=== PATIENT | female | born 1960 | race Caucasian/White ===

== ENCOUNTER 2024-03-03 10:42 | Inpatient (IN) | payer MEDICARE ==
[~2024-03-03] VITALS: Ht 152.4 cm; Wt 57.9 kg
[~2024-03-03 10:42] MED LIST: BACL10TA PO; Bisacodyl PR; CEFD300C18 PO; CLON-598 PO; HYDR-4062 PO; HYDR-4527 PO; LIDO100S39 PO; LIDO35.422 TP; METF-1211 PO; PANT-31 PO; PILO1OS OU; PRAZ5 PO; PRED-549 PO; PRED-729 PO; PREG50 PO; PRIM50TA3 PO; QUET25TA PO; SENN-376 PO; THYR30TA24 PO
[2024-03-03] MEDS ORDERED: 0.9% SODIUM CHLORIDE 10 ML SYRINGE IVP PRN (12:00)
[2024-03-03] MEDS: SODIUM CHLORIDE 0.9% 1,750 ML IV ONE (12:23)
[2024-03-03] MEDS: LORazepam 2 MG/ML VIAL IVP ONE (12:23)
[2024-03-03] MEDS: CefTRIAXone 1 GM/DEXTROSE 50 ML IV ONE (12:28)
[2024-03-03 12:46] LABS: BASOPHILS % (AUTO) 0.7 % (0.0-2.0); EOSINOPHILS % (AUTO) 1.2 % (1.0-6.0); HEMATOCRIT 45.8 % (36-46); LYMPHOCYTES # (AUTO) 2.1 K/uL (1.0-4.8); LYMPHOCYTES % (AUTO) 25.6 % (22.0-44.0); MEAN CORPUSCULAR HEMOGLOBIN 31.3 pg (26.0-34.0); MEAN CORPUSCULAR HGB CONC 32.6 G/dL (31.0-37.0); MEAN CORPUSCULAR VOLUME 96 fL (80-100); MONOCYTES # (AUTO) 0.6 K/uL (0.1-1.0); MONOCYTES % (AUTO) 7.3 % (2.0-9.0); NEUTROPHILS # (AUTO) 5.4 K/uL (1.8-7.7); NEUTROPHILS % (AUTO) 65.2 % (40.0-70.0); PLATELET COUNT (AUTO) 269 K/uL (150-450); RED BLOOD CELL COUNT(AUTO) 4.77 MIL/uL (4.00-5.20); RED CELL DISTRIBUTION WIDTH 16.4 % (11.5-14.5); WHITE BLOOD COUNT (AUTO) 8.2 K/uL (4.5-11.0)
[2024-03-03 12:59] LABS: PROTHROMBIN TIME 10.1 SEC (9.4-11.6)
[2024-03-03 13:00] LABS: ANION GAP 6 mmol/L (8-16); CALCIUM, TOTAL 9.6 mg/dL (8.8-10.5); CARBON DIOXIDE 29 mmol/L (22-29); CHLORIDE 108 mmol/L (98-107); CREATININE 0.45 mg/dL (0.60-1.30); GLOMERULAR FILTR. RATE CALC > 60 mL/min (>60); GLUCOSE,RANDOM 103 mg/dL (70-110); POTASSIUM 4.3 mmol/L (3.5-5.1); SODIUM SERUM 143 mmol/L (136-145); UREA NITROGEN, BLOOD 9 mg/dL (7-18)
[2024-03-03 13:06] LABS: AMMONIA 27 umol/L (11-32)
[2024-03-03 13:09] LABS: B-TYPE NATRIURETIC PEPTIDE 8 pg/mL (0-100)
[2024-03-03 13:12] LABS: ALANINE AMINOTRANSFERASE 54 U/L (12-78); ALBUMIN 3.5 g/dL (3.4-5.0); ALKALINE PHOSPHATASE 106 U/L (46-116); ASPARTATE AMINOTRANSFERASE 22 U/L (15-37); BILIRUBIN,TOTAL 0.2 mg/dL (0.1-1.0); TOTAL PROTEIN, SERUM 7.2 g/dL (6.4-8.2)
[2024-03-03 13:18] LABS: APPEARANCE,URINE CLEAR (CLEAR); BILIRUBIN,URINE NEGATIVE (NEGATIVE); COLOR,URINE COLORLESS (YELLOW); GLUCOSE, URINE (UA) NEGATIVE (NEGATIVE); KETONES,URINE NEGATIVE (NEGATIVE); LEUKOCYTE ESTERASE ,URINE LARGE (NEGATIVE); NITRATE,URINE NEGATIVE (NEGATIVE); OCCULT BLOOD,URINE NEGATIVE (NEGATIVE); PH,URINE 7.5 (5.0-8.0); PH,URINE DRUG SCREEN 7.5 (5.0-8.0); PROTEIN,URINE NEGATIVE (NEGATIVE); SPECIFIC GRAVITIY, URINE 1.006 (1.003-1.030); UROBILINOGEN,URINE <=1.0 mg/dL (<=1.0)
[2024-03-03 13:24] LABS: AMPHET/METH SCREEN,URINE NEGATIVE (NEGATIVE); BARBITURATE SCREEN, URINE POSITIVE (NEGATIVE); BENZODIAZEPINES SCREEN,URINE POSITIVE (NEGATIVE); CANNABINOID SCREEN,URINE NEGATIVE (NEGATIVE); COCAINE SCREEN,URINE NEGATIVE (NEGATIVE); METHADONE SCREEN, URINE NEGATIVE (NEGATIVE); OPIATE SCREEN,URINE NEGATIVE (NEGATIVE); PHENCYCLIDINE SCREEN,URINE NEGATIVE (NEGATIVE)
[2024-03-03 13:24] LABS: TROPONIN I-HIGH SENSITIVITY Less Than 4 ng/L (<51)
[2024-03-03 13:26] LABS: ALCOHOL, URINE DRUG SCREEN NEGATIVE (NEGATIVE)
[2024-03-03 13:31] LABS: LACTIC ACID 2.3 mmol/L (0.4-2.0)
[2024-03-03 13:43] LABS: BACTERIA,URINE Few /HPF (None Seen); RBC,URINE None Seen /HPF (0-2)
[2024-03-03] MEDS: HYDROCORTISONE SOD SUCC 100 MG/2 ML VIAL IVP ONE (14:15)
[2024-03-03] MEDS ORDERED: BISACODYL 10 MG RECTAL RECTAL SUPPOSITORY PR PRN (14:30)
[2024-03-03] MEDS ORDERED: HydrOXYzine HCL 25 MG TABLET PO PRN (14:30)
[2024-03-03] MEDS ORDERED: ACETAMINOPHEN 325 MG TABLET PO PRN (14:30)
[2024-03-03] MEDS ORDERED: MAGNESIUM HYDROXIDE SUSPENSION 30 ML UDCUP PO PRN (14:30)
[2024-03-03] MEDS ORDERED: ONDANSETRON HCL 4 MG/2 ML VIAL IVP PRN (14:30)
[2024-03-03] MEDS: HEPARIN SODIUM,PORCINE 5,000 UNITS/ML VIAL SQ SCH (15:16)
[2024-03-03] MEDS: MORPHINE SULFATE 2 MG/ML SYRINGE IVP PRN (15:19)
[2024-03-03] MEDS: BACLOFEN 10 MG TABLET PO SCH (15:19)
[2024-03-03 18:30] VITALS: BP 149/74; PULSE 58; RESP 16; TEMP 97.8; O2SAT 98
[2024-03-03 20:00] VITALS: BP 113/67; PULSE 69; RESP 20; TEMP 98.1; O2SAT 94
[2024-03-03] MEDS: DOCUSATE SODIUM 100 MG CAPSULE PO SCH (21:00)
[2024-03-03] MEDS: ZOLPIDEM TARTRATE 5 MG TABLET PO PRN (21:20)
[2024-03-03] MEDS: ClonazePAM 1 MG TABLET PO SCH (21:21)
[2024-03-03] MEDS: PRAZOSIN HCL 5 MG CAPSULE PO SCH (21:21)
[2024-03-03] MEDS: APIXABAN 5 MG TABLET PO SCH (21:21)
[2024-03-04] MEDS: PANTOPRAZOLE SODIUM 40 MG DR TABLET PO SCH (08:39)
[2024-03-04] MEDS: PredniSONE 5 MG TABLET PO SCH (08:40)
[2024-03-04] MEDS: CefTRIAXone 1 GM/DEXTROSE 50 ML IV SCH (12:01)
[2024-03-04] MEDS: MetFORMIN HCL 500 MG TABLET PO SCH (12:01)
[2024-03-04] MEDS: HYDROCODONE/ACETAMINOPHEN 5-325 MG TABLET PO PRN (16:46)
[2024-03-05 04:51] VITALS: BP 100/58; PULSE 63; RESP 18; TEMP 97.8; O2SAT 95
[2024-03-05 08:27] VITALS: BP 106/62; PULSE 72; RESP 16; TEMP 98; O2SAT 96
[2024-03-05] MEDS ORDERED: THYR30TA24 PO (10:55)
[2024-03-05] MEDS ORDERED: HYDR-4062 PO (10:55)
[2024-03-05] MEDS ORDERED: METF-1211 PO (10:55)
[2024-03-05] MEDS ORDERED: PRED-729 PO (10:55)
[2024-03-05] MEDS ORDERED: PRAZ5 PO (10:55)
[2024-03-05] MEDS ORDERED: PREG50 PO (10:55)
[2024-03-05] MEDS ORDERED: APIX5TAB PO (10:55)
[2024-03-05] MEDS ORDERED: BACL10TA PO (10:55)
[2024-03-05] MEDS ORDERED: LEVO-72 PO (10:55)
[2024-03-05] MEDS ORDERED: PILO1OS OU (10:55)
[2024-03-05] MEDS ORDERED: PANT-31 PO (10:55)
== END 2024-03-05 15:15 | disposition home health service (06) | DRG 92 ==
LOC: EMS 10:42 → EDH 14:16 → 6S 19:31
PROVIDERS: ADMIT Internal Medicine; ATTEND Internal Medicine
DX: G92.8 Other toxic encephalopathy (principal); N39.0 Urinary tract infection, site not specified; E11.9 Type 2 diabetes mellitus without complications; I10 Essential (primary) hypertension; K21.9 Gastro-esophageal reflux disease without esophagitis; E03.9 Hypothyroidism, unspecified; E78.5 Hyperlipidemia, unspecified; B96.1 Klebsiella pneumoniae [K. pneumoniae] as the cause of diseases classified elsewhere; F25.9 Schizoaffective disorder, unspecified; G89.29 Other chronic pain; Z79.84 Long term (current) use of oral hypoglycemic drugs; Z86.718 Personal history of other venous thrombosis and embolism; Z88.8 Allergy status to other drugs, medicaments and biological substances
CPT/HCPCS: 51702; 70450; 71045; 80053; 80307; 81001; 82140; 83605; 83880; 84145; 84484; 85025; 85610; 87040; 87077; 87086; 87186; 93005; 93970; 97163; 97530; 99291; G0480; J0696; J1644; J1720; J2060; J2270; J7030; 36415-L1; 36415-TC; J7512; Z7610

== ENCOUNTER 2024-04-07 08:31 | Inpatient (IN) | payer MEDICARE ==
[~2024-04-07] VITALS: Ht 160 cm; Wt 62.1 kg
[~2024-04-07 08:31] MED LIST changes: +APIX5TAB PO; -CEFD300C18 PO; +LEVO-72 PO; -LIDO35.422 TP; -PRED-549 PO
[2024-04-07] MEDS ORDERED: ACETAMINOPHEN 650 MG RECTAL SUPPOSITORY PR ONE (09:00)
[2024-04-07] MEDS: ACETAMINOPHEN 1000 MG/ISO-OSM 100 ML IV ONE (09:03)
[2024-04-07 09:08] LABS: BASOPHILS % (AUTO) 0.5 % (0.0-2.0); EOSINOPHILS % (AUTO) 0.1 % (1.0-6.0); HEMATOCRIT 41.7 % (36-46); HEMOGLOBIN 13.8 g/dL (12.0-16.0); LYMPHOCYTES # (AUTO) 0.6 K/uL (1.0-4.8); LYMPHOCYTES % (AUTO) 9.5 % (22.0-44.0); MEAN CORPUSCULAR HEMOGLOBIN 31.6 pg (26.0-34.0); MEAN CORPUSCULAR HGB CONC 33.2 G/dL (31.0-37.0); MEAN CORPUSCULAR VOLUME 95 fL (80-100); MONOCYTES # (AUTO) 0.4 K/uL (0.1-1.0); MONOCYTES % (AUTO) 6.4 % (2.0-9.0); NEUTROPHILS # (AUTO) 5.4 K/uL (1.8-7.7); NEUTROPHILS % (AUTO) 83.5 % (40.0-70.0); PLATELET COUNT (AUTO) 175 K/uL (150-450); RED BLOOD CELL COUNT(AUTO) 4.38 MIL/uL (4.00-5.20); RED CELL DISTRIBUTION WIDTH 16.4 % (11.5-14.5); WHITE BLOOD COUNT (AUTO) 6.4 K/uL (4.5-11.0)
[2024-04-07] MEDS: VANCOMYCIN 1.5 GM/WATER(PEG) 300 ML IV ONE (09:15)
[2024-04-07] MEDS: SODIUM CHLORIDE 0.9% 500 ML IV ONE (09:16)
[2024-04-07] MEDS: CEFEPIME HCL 2 GM in DEXTROSE 5%-WATER 50 ML IV ONE (09:16)
[2024-04-07 09:18] LABS: COVID AG,FIA SOURCE NASAL SWAB
[2024-04-07 09:22] LABS: APPEARANCE,URINE CLEAR (CLEAR); BILIRUBIN,URINE NEGATIVE (NEGATIVE); COLOR,URINE YELLOW (YELLOW); GLUCOSE, URINE (UA) NEGATIVE (NEGATIVE); KETONES,URINE NEGATIVE (NEGATIVE); LEUKOCYTE ESTERASE ,URINE NEGATIVE (NEGATIVE); NITRATE,URINE NEGATIVE (NEGATIVE); OCCULT BLOOD,URINE NEGATIVE (NEGATIVE); PH,URINE 5.5 (5.0-8.0); PROTEIN,URINE 30-70 mg/dL (NEGATIVE); SPECIFIC GRAVITIY, URINE 1.019 (1.003-1.030); UROBILINOGEN,URINE <=1.0 mg/dL (<=1.0)
[2024-04-07 09:23] LABS: ANION GAP 9 mmol/L (8-16); CALCIUM, TOTAL 8.5 mg/dL (8.8-10.5); CARBON DIOXIDE 26 mmol/L (22-29); CHLORIDE 98 mmol/L (98-107); CREATININE 0.79 mg/dL (0.60-1.30); GLOMERULAR FILTR. RATE CALC > 60 mL/min (>60); GLUCOSE,RANDOM 129 mg/dL (70-110); POTASSIUM 3.7 mmol/L (3.5-5.1); SODIUM SERUM 133 mmol/L (136-145); UREA NITROGEN, BLOOD 16 mg/dL (7-18)
[2024-04-07 09:31] LABS: TROPONIN I-HIGH SENSITIVITY 6 ng/L (<51)
[2024-04-07 09:37] LABS: THYROID STIMULATING HORMONE 0.77 uIU/mL (0.36-3.74)
[2024-04-07 09:40] LABS: INFLUENZA TYPE A NEGATIVE FOR TYPE A (NEGATIVE); INFLUENZA TYPE B NEGATIVE FOR TYPE B (NEGATIVE); SARS-COV2 (COVID) ANTIGEN,FIA Negative (Negative)
[2024-04-07 09:48] LABS: LACTIC ACID 1.2 mmol/L (0.4-2.0)
[2024-04-07] MEDS ORDERED: CLON1TAB12 PO (12:06)
[2024-04-07] MEDS ORDERED: THYR30TA2 PO (12:06)
[2024-04-07] MEDS ORDERED: CLON2TAB11 PO (12:06)
[2024-04-07] MEDS ORDERED: PRED5TAB2 PO (12:06)
[2024-04-07] MEDS ORDERED: DIAZ5TAB4 PO (12:06)
[2024-04-07] MEDS ORDERED: BACL20TA PO (12:06)
[2024-04-07] MEDS ORDERED: ALEN70TA80 PO (12:06)
[2024-04-07] MEDS ORDERED: LEVO25TA9 PO (12:06)
[2024-04-07] MEDS ORDERED: ZOLPIDEM TARTRATE 5 MG TABLET PO PRN (14:15)
[2024-04-07] MEDS ORDERED: BISACODYL 10 MG RECTAL RECTAL SUPPOSITORY PR PRN (14:15)
[2024-04-07] MEDS ORDERED: MAGNESIUM HYDROXIDE SUSPENSION 30 ML UDCUP PO PRN (14:15)
[2024-04-07] MEDS ORDERED: ONDANSETRON HCL 4 MG/2 ML VIAL IVP PRN (14:15)
[2024-04-07 14:35] LABS: ALANINE AMINOTRANSFERASE 125 U/L (12-78); ALBUMIN 3.2 g/dL (3.4-5.0); ALKALINE PHOSPHATASE 129 U/L (46-116); ASPARTATE AMINOTRANSFERASE 99 U/L (15-37); BILIRUBIN,TOTAL 0.2 mg/dL (0.1-1.0); TOTAL PROTEIN, SERUM 6.4 g/dL (6.4-8.2)
[2024-04-07] MEDS: *CLINICAL-LEVOFLOXACIN IVPB DOSING CLINICAL ONE (14:38)
[2024-04-07] MEDS: ACETAMINOPHEN 325 MG TABLET PO PRN (14:44)
[2024-04-07] MEDS: SODIUM CHLORIDE 0.9% 1,000 ML IV ONE (14:44)
[2024-04-07] MEDS ORDERED: BISA10SU11 PR (14:45)
[2024-04-07] MEDS: LEVOFLOXACIN 750 MG/D5% WATER 150 ML IV SCH (14:46)
[2024-04-07] MEDS ORDERED: TRAZ-252 PO (14:48)
[2024-04-07] MEDS ORDERED: HEPARIN SODIUM,PORCINE 5,000 UNITS/ML VIAL SQ SCH (16:00)
[2024-04-07 16:33] VITALS: BP 134/84; PULSE 67; RESP 17; TEMP 98.4; O2SAT 100
[2024-04-07 17:05] VITALS: BP 101/51; PULSE 121; RESP 17; TEMP 100.1; O2SAT 97
[2024-04-07] MEDS: CefTRIAXone 1 GM/DEXTROSE 50 ML IV SCH (17:23)
[2024-04-07 20:36] VITALS: BP 104/52; PULSE 110; RESP 19; TEMP 99.3; O2SAT 96
[2024-04-07] MEDS: DOCUSATE SODIUM 100 MG CAPSULE PO SCH (21:00)
[2024-04-07] MEDS: APIXABAN 5 MG TABLET PO SCH (21:44)
[2024-04-07 22:54] LABS: PH,URINE DRUG SCREEN 5.5 (5.0-8.0)
[2024-04-07 23:01] LABS: ALCOHOL, URINE DRUG SCREEN NEGATIVE (NEGATIVE); AMPHET/METH SCREEN,URINE NEGATIVE (NEGATIVE); BARBITURATE SCREEN, URINE NEGATIVE (NEGATIVE); BENZODIAZEPINES SCREEN,URINE NEGATIVE (NEGATIVE); CANNABINOID SCREEN,URINE NEGATIVE (NEGATIVE); COCAINE SCREEN,URINE NEGATIVE (NEGATIVE); METHADONE SCREEN, URINE NEGATIVE (NEGATIVE); OPIATE SCREEN,URINE POSITIVE (NEGATIVE); PHENCYCLIDINE SCREEN,URINE NEGATIVE (NEGATIVE)
[2024-04-08] VITALS (7 sets, daily range): BP systolic 104–148; BP diastolic 57–72; PULSE 81–112; RESP 17–19; TEMP 97.5–98.7; O2SAT 97–100
[2024-04-08 00:52] LABS: INFLUENZA A-RTPCR,COMBO POSITIVE (NEGATIVE); INFLUENZA B-RTPCR,COMBO NEGATIVE (NEGATIVE); RESPIRATORY SYNCYTIAL VRS-PCR NEGATIVE (NEGATIVE); SARS COVID19 RTPCR, COMBO NEGATIVE (NEGATIVE)
[2024-04-08] MEDS: LEVOTHYROXINE SODIUM 25 MCG TABLET PO SCH (05:30)
[2024-04-08] MEDS: THYROID 30 MG TABLET PO SCH (05:30)
[2024-04-08 06:45] LABS: BASOPHILS % (AUTO) 0.4 % (0.0-2.0); EOSINOPHILS % (AUTO) 0.2 % (1.0-6.0); HEMATOCRIT 42.1 % (36-46); HEMOGLOBIN 13.4 g/dL (12.0-16.0); LYMPHOCYTES # (AUTO) 0.8 K/uL (1.0-4.8); LYMPHOCYTES % (AUTO) 13.6 % (22.0-44.0); MEAN CORPUSCULAR HEMOGLOBIN 31.6 pg (26.0-34.0); MEAN CORPUSCULAR HGB CONC 31.9 G/dL (31.0-37.0); MEAN CORPUSCULAR VOLUME 99 fL (80-100); MONOCYTES # (AUTO) 0.4 K/uL (0.1-1.0); MONOCYTES % (AUTO) 7.4 % (2.0-9.0); NEUTROPHILS # (AUTO) 4.4 K/uL (1.8-7.7); NEUTROPHILS % (AUTO) 78.4 % (40.0-70.0); PLATELET COUNT (AUTO) 117 K/uL (150-450); RED BLOOD CELL COUNT(AUTO) 4.25 MIL/uL (4.00-5.20); RED CELL DISTRIBUTION WIDTH 16.9 % (11.5-14.5); WHITE BLOOD COUNT (AUTO) 5.6 K/uL (4.5-11.0)
[2024-04-08 06:56] LABS: ALANINE AMINOTRANSFERASE 97 U/L (12-78); ALBUMIN 2.7 g/dL (3.4-5.0); ALKALINE PHOSPHATASE 117 U/L (46-116); ANION GAP 13 mmol/L (8-16); ASPARTATE AMINOTRANSFERASE 74 U/L (15-37); BILIRUBIN,TOTAL 0.2 mg/dL (0.1-1.0); CALCIUM, TOTAL 7.9 mg/dL (8.8-10.5); CARBON DIOXIDE 23 mmol/L (22-29); CHLORIDE 105 mmol/L (98-107); CREATININE 0.41 mg/dL (0.60-1.30); GLOMERULAR FILTR. RATE CALC > 60 mL/min (>60); GLUCOSE,RANDOM 104 mg/dL (70-110); POTASSIUM 3.5 mmol/L (3.5-5.1); SODIUM SERUM 140 mmol/L (136-145); TOTAL PROTEIN, SERUM 5.8 g/dL (6.4-8.2); UREA NITROGEN, BLOOD 8 mg/dL (7-18)
[2024-04-08] MEDS: PANTOPRAZOLE SODIUM 40 MG DR TABLET PO SCH (08:44)
[2024-04-08] MEDS: OSELTAMIVIR PHOSPHATE 75 MG CAPSULE PO SCH (12:52)
[2024-04-08] MEDS: MethylPREDNISolone SOD SUCC 40 MG/ML VIAL IVP SCH (15:05)
[2024-04-08] MEDS: MORPHINE SULFATE 2 MG/ML SYRINGE IVP PRN (22:08)
[2024-04-08] MEDS: HYDROCODONE/ACETAMINOPHEN 5-325 MG TABLET PO PRN (23:59)
[2024-04-09 05:34] VITALS: BP 123/66; PULSE 76; RESP 18; TEMP 97.9; O2SAT 99
[2024-04-09] MEDS: HydrOXYzine HCL 25 MG TABLET PO PRN ×2 (06:12→13:20)
[2024-04-09 09:39] VITALS: BP 129/67; PULSE 84; RESP 18; TEMP 98; O2SAT 98
[2024-04-09 11:23] LABS: BASOPHILS % (AUTO) 0.4 % (0.0-2.0); EOSINOPHILS % (AUTO) 0 % (1.0-6.0); HEMATOCRIT 40.5 % (36-46); HEMOGLOBIN 13.6 g/dL (12.0-16.0); LYMPHOCYTES # (AUTO) 0.6 K/uL (1.0-4.8); LYMPHOCYTES % (AUTO) 20.3 % (22.0-44.0); MEAN CORPUSCULAR HEMOGLOBIN 31.5 pg (26.0-34.0); MEAN CORPUSCULAR HGB CONC 33.5 G/dL (31.0-37.0); MEAN CORPUSCULAR VOLUME 94 fL (80-100); MONOCYTES # (AUTO) 0.1 K/uL (0.1-1.0); MONOCYTES % (AUTO) 3.5 % (2.0-9.0); NEUTROPHILS # (AUTO) 2.4 K/uL (1.8-7.7); NEUTROPHILS % (AUTO) 75.8 % (40.0-70.0); PLATELET COUNT (AUTO) 150 K/uL (150-450); RED BLOOD CELL COUNT(AUTO) 4.31 MIL/uL (4.00-5.20); RED CELL DISTRIBUTION WIDTH 15.9 % (11.5-14.5); WHITE BLOOD COUNT (AUTO) 3.1 K/uL (4.5-11.0)
[2024-04-09 11:35] VITALS: BP 124/69; PULSE 78; RESP 18; TEMP 97.8; O2SAT 99
[2024-04-09 11:37] LABS: ANION GAP 15 mmol/L (8-16); CALCIUM, TOTAL 8.2 mg/dL (8.8-10.5); CARBON DIOXIDE 21 mmol/L (22-29); CHLORIDE 105 mmol/L (98-107); CREATININE 0.43 mg/dL (0.60-1.30); GLOMERULAR FILTR. RATE CALC > 60 mL/min (>60); GLUCOSE,RANDOM 104 mg/dL (70-110); POTASSIUM 3.7 mmol/L (3.5-5.1); SODIUM SERUM 141 mmol/L (136-145); UREA NITROGEN, BLOOD 6 mg/dL (7-18)
[2024-04-09] MEDS ORDERED: INSULIN LISPRO 100 UNITS/ML SQ PRN (12:00)
[2024-04-09] MEDS ORDERED: SENNOSIDES 8.6 MG TABLET PO PRN (12:00)
[2024-04-09] MEDS ORDERED: HYDROCODONE/ACETAMINOPHEN 5-325 MG TABLET PO PRN (12:00)
[2024-04-09] MEDS ORDERED: DEXTROSE 50%-WATER 25 GM/50 ML SYRINGE IVP PRN (12:00)
[2024-04-09] MEDS ORDERED: VANCOMYCIN 750 MG/WATER(PEG) 150 ML IV ONE (12:00)
[2024-04-09] MEDS ORDERED: BISACODYL 10 MG RECTAL RECTAL SUPPOSITORY PR PRN (12:00)
[2024-04-09] MEDS ORDERED: SODIUM CHLORIDE 3% 15 ML NEB SOLUTION NEB ONE (12:05)
[2024-04-09] MEDS: VANCOMYCIN HCL 750 MG in DEXTROSE 5%-WATER 250 ML IV ONE (13:10)
[2024-04-09] MEDS: ClonazePAM 1 MG TABLET PO PRN (13:20)
[2024-04-09] MEDS: BACLOFEN 10 MG TABLET PO PRN (13:20)
[2024-04-09 15:08] VITALS: BP 122/64; PULSE 80; RESP 19; TEMP 97.6; O2SAT 98
[2024-04-09] MEDS: PREGABALIN 50 MG CAPSULE PO SCH (16:12)
[2024-04-09] MEDS ORDERED: VANCOMYCIN 750 MG/WATER(PEG) 150 ML IV SCH (20:00)
[2024-04-09] MEDS: VANCOMYCIN HCL 750 MG in DEXTROSE 5%-WATER 250 ML IV SCH (20:17)
[2024-04-09] MEDS: PredniSONE 10 MG TABLET PO SCH (20:17)
[2024-04-09] MEDS: PRAZOSIN HCL 5 MG CAPSULE PO SCH (20:25)
[2024-04-09] MEDS: PRIMIDONE 50 MG TABLET PO SCH (20:26)
[2024-04-09] MEDS: TraZODone HCL 50 MG TABLET PO SCH (20:26)
[2024-04-09] MEDS: PANTOPRAZOLE SODIUM 40 MG DR TABLET PO SCH (20:27)
[2024-04-09] MEDS: QUEtiapine FUMARATE 25 MG TABLET PO SCH (20:28)
[2024-04-09] MEDS: PILOCARPINE HCL 1% 15 ML OPHTHALMIC SOLUTION OU SCH (20:29)
[2024-04-09 20:30] VITALS: BP 106/73; PULSE 69; RESP 19; TEMP 97.8; O2SAT 99
[2024-04-09 23:05] LABS: GLUCOMETER DEV NAME(LOC) 5N.1D; GLUCOSE,POINT OF CARE 145 MG/DL (70-110)
[2024-04-10 00:45] VITALS: BP 112/69; PULSE 70; RESP 18; TEMP 98.1; O2SAT 98
[2024-04-10 04:45] VITALS: BP 100/65; PULSE 85; RESP 19; TEMP 97.7; O2SAT 98
[2024-04-10] MEDS ORDERED: ALENDRONATE SODIUM 70 MG TABLET PO SCH (06:30)
[2024-04-10 07:40] VITALS: BP 106/73; PULSE 82; RESP 16; TEMP 98.1; O2SAT 97
[2024-04-10 08:45] LABS: GLUCOMETER DEV NAME(LOC) 5N.1D; GLUCOSE,POINT OF CARE 169 MG/DL (70-110)
[2024-04-10 08:47] LABS: BASOPHILS % (AUTO) 0.6 % (0.0-2.0); EOSINOPHILS % (AUTO) 0.4 % (1.0-6.0); HEMATOCRIT 37.9 % (36-46); HEMOGLOBIN 12.9 g/dL (12.0-16.0); LYMPHOCYTES # (AUTO) 0.9 K/uL (1.0-4.8); LYMPHOCYTES % (AUTO) 39.6 % (22.0-44.0); MEAN CORPUSCULAR HEMOGLOBIN 31.8 pg (26.0-34.0); MEAN CORPUSCULAR HGB CONC 33.9 G/dL (31.0-37.0); MEAN CORPUSCULAR VOLUME 94 fL (80-100); MONOCYTES # (AUTO) 0.3 K/uL (0.1-1.0); MONOCYTES % (AUTO) 12.8 % (2.0-9.0); NEUTROPHILS % (AUTO) 46.6 % (40.0-70.0); PLATELET COUNT (AUTO) 163 K/uL (150-450); RED BLOOD CELL COUNT(AUTO) 4.05 MIL/uL (4.00-5.20); RED CELL DISTRIBUTION WIDTH 15.8 % (11.5-14.5); WHITE BLOOD COUNT (AUTO) 2.2 K/uL (4.5-11.0)
[2024-04-10 09:09] LABS: ALANINE AMINOTRANSFERASE 67 U/L (12-78); ALBUMIN 2.6 g/dL (3.4-5.0); ALKALINE PHOSPHATASE 96 U/L (46-116); ANION GAP 10 mmol/L (8-16); ASPARTATE AMINOTRANSFERASE 44 U/L (15-37); BILIRUBIN,TOTAL 0.2 mg/dL (0.1-1.0); CARBON DIOXIDE 25 mmol/L (22-29); CHLORIDE 106 mmol/L (98-107); CREATININE 0.44 mg/dL (0.60-1.30); GLOMERULAR FILTR. RATE CALC > 60 mL/min (>60); GLUCOSE,RANDOM 141 mg/dL (70-110); POTASSIUM 3.1 mmol/L (3.5-5.1); SODIUM SERUM 141 mmol/L (136-145); TOTAL PROTEIN, SERUM 5.7 g/dL (6.4-8.2); UREA NITROGEN, BLOOD 7 mg/dL (7-18)
[2024-04-10] MEDS ORDERED: POTASSIUM CHL 10 MEQ/WATER 50 ML IV PRN (12:15)
[2024-04-10] MEDS ORDERED: POTASSIUM CHLORIDE 20 MEQ ER TABLET PO PRN (12:15)
[2024-04-10] MEDS ORDERED: LINE600T14 PO (12:21)
[2024-04-10] MEDS ORDERED: CEFD300C18 PO (12:21)
[2024-04-10] MEDS: POTASSIUM CHLORIDE 10% 40 MEQ/30 ML LIQUID UDCUP PO ONE (13:17)
[2024-04-10] MEDS ORDERED: OSEL75CA17 PO (14:02)
[2024-04-10 15:40] LABS: HEMOGLOBIN A1C 6.2 % (3.8-5.6)
[2024-04-10 15:42] LABS: CHOL/HDL RATIO 7.1 (3.9-5.7)
[2024-04-10 15:51] VITALS: BP 113/70; PULSE 71; RESP 16; TEMP 97.7; O2SAT 97
[2024-04-10 20:32] VITALS: BP 113/69; PULSE 68; RESP 16; TEMP 97.8; O2SAT 98
[2024-04-10] MEDS: PredniSONE 10 MG TABLET PO SCH (21:01)
[2024-04-11] VITALS: BP 117/63; PULSE 66; RESP 16; TEMP 97.7; O2SAT 94
[2024-04-11 05:00] VITALS: BP 116/72; PULSE 71; RESP 17; TEMP 97.6; O2SAT 100
[2024-04-11 05:26] LABS: GLUCOMETER DEV NAME(LOC) 5S.1D; GLUCOSE,POINT OF CARE 134 MG/DL (70-110)
[2024-04-11 05:26] LABS: GLUCOMETER DEV NAME(LOC) 5S.1D; GLUCOSE,POINT OF CARE 186 MG/DL (70-110)
[2024-04-11 07:41] LABS: ANION GAP 8 mmol/L (8-16); CARBON DIOXIDE 26 mmol/L (22-29); CHLORIDE 110 mmol/L (98-107); CREATININE 0.41 mg/dL (0.60-1.30); GLOMERULAR FILTR. RATE CALC > 60 mL/min (>60); GLUCOSE,RANDOM 172 mg/dL (70-110); POTASSIUM 4.2 mmol/L (3.5-5.1); SODIUM SERUM 144 mmol/L (136-145); UREA NITROGEN, BLOOD 8 mg/dL (7-18)
[2024-04-11] MEDS: VANCOMYCIN 1.25 GM/WATER(PEG) 250 ML IV ONE (09:23)
[2024-04-11] MEDS: POLYETHYLENE GLYCOL 3350 17 GM PACKET PO PRN (09:25)
[2024-04-11 09:29] VITALS: BP 118/66; PULSE 86; RESP 18; TEMP 98.1; O2SAT 95
[2024-04-11 11:46] LABS: GLUCOMETER DEV NAME(LOC) 5S.1D; GLUCOSE,POINT OF CARE 188 MG/DL (70-110)
[2024-04-11 12:00] VITALS: BP 126/77; PULSE 78; RESP 18; TEMP 98.2; O2SAT 95
[2024-04-11 13:06] LABS: LEGIONELLA PNEUMO AG URINE Negative (Negative)
[2024-04-11 14:06] LABS: S PNEUMO SOURCE Urine; STREP PNEUMONIAE AG URINE Negative (Negative)
[2024-04-11] MEDS ORDERED: VANCOMYCIN 1GM/WATER(PEG/NADA) 200 ML IV SCH (16:00)
[2024-04-12 00:30] LABS: GLUCOMETER DEV NAME(LOC) 5N.1D; GLUCOSE,POINT OF CARE 134 MG/DL (70-110)
== END 2024-04-11 15:07 | disposition home or self-care (01) | DRG 871 ==
LOC: EMS 08:31 → EDBEDREQ 10:19 → EDH 12:28 → 5S 16:00
PROVIDERS: ADMIT Internal Medicine; ATTEND Internal Medicine
DX: A41.89 Other specified sepsis (principal); G93.41 Metabolic encephalopathy; J10.00 Influenza due to other identified influenza virus with unspecified type of pneumonia; E27.1 Primary adrenocortical insufficiency; E44.0 Moderate protein-calorie malnutrition; Z20.822 Contact with and (suspected) exposure to COVID-19; F20.9 Schizophrenia, unspecified; N20.0 Calculus of kidney; I11.0 Hypertensive heart disease with heart failure; I50.9 Heart failure, unspecified; Z79.52 Long term (current) use of systemic steroids; Z86.718 Personal history of other venous thrombosis and embolism; Z68.26 Body mass index [BMI] 26.0-26.9, adult
CPT/HCPCS: 0241U; 51702; 70450; 71045; 71250; 72192; 74150; 80048; 80053; 80061; 80076; 80202; 80307; 81003; 82962; 83036; 83605; 83735; 84132; 84145; 84443; 84484; 85025; 87040; 87070; 87205; 87449; 87804; 87899; 93005; 94640; 99291; G0378; J0131; J0692; J0696; J1956; J2270; J3370; J7040; J7060; 36415-L1; 36415-TC; J7512; Z7610